=== PATIENT | female | born 1985 | race Caucasian/White ===

== ENCOUNTER 2019-06-19 13:02 | Day surgery (SDC) | payer OTHER ==
[~2019-06-19] VITALS: Ht 165.1 cm; Wt 74.9 kg
[~2019-06-19 13:02] MED LIST: CEFAZOLIN 1,000 MG ONE; DEXAMETHASONE 4 MG/ML, 1ML ONE; FENTANYL PF 250 MCG/5ML ONE; GLYCOPYRROLATE 0.2MG/1ML, 5ML ONE; MIDAZOLAM 1 MG/ML, 2ML ONE; NEOSTIGMINE 1 MG/ML, 10ML ONE; ONDANSETRON 2MG/ML, 2ML ONE; PROPOFOL 10 MG/ML, 20ML ONE; ROCURONIUM 10MG/ML,5ML ONE
[2019-06-19 13:55] VITALS: BP 107/71
[2019-06-19] MEDS ORDERED: LEVO25TA4 PO (13:55)
[2019-06-19] MEDS ORDERED: PREN1COM10 PO (13:55)
[2019-06-19] MEDS: LACTATED RINGERS 1,000 ML IV SCH ×2 (14:35→14:36)
[2019-06-19 14:37] LABS: BASOPHILS # (AUTO) 0.03 x10^3/uL (0-0.1); BASOPHILS % (AUTO) 1 % (0-1); EOSINOPHILS # (AUTO) 0.03 x10^3/uL (0-0.4); EOSINOPHILS % (AUTO) 1 % (1-7); LYMPHOCYTES # (AUTO) 1.32 x10^3/uL (1-3.4); LYMPHOCYTES % (AUTO) 28 % (22-44); MD NO; MEAN CORPUSCULAR HEMOGLOBIN 30.1 pg (27.0-34.8); MEAN CORPUSCULAR HGB CONC 33.7 g/dL (32.4-35.8); MEAN CORPUSCULAR VOLUME 89.4 fL (80-100); MEAN PLATELET VOLUME 7.5 fL (7.4-10.4); MONOCYTES # (AUTO) 0.25 x10^3/uL (0.2-0.8); MONOCYTES % (AUTO) 5 % (2-9); NEUTROPHILS # (AUTO) 3.07 x10^3/uL (1.8-6.8); NEUTROPHILS % (AUTO) 65 % (42-75); PLATELET COUNT 209 x10^3/uL (130-400); RED CELL DISTRIBUTION WIDTH 13.2 % (9.6-15.2)
[2019-06-19] MEDS ORDERED: OXYTOCIN 10 UNITS/ML, 1ML ONE (14:42)
[2019-06-19] MEDS ORDERED: METHYLERGONOVINE 0.2 MG/ML IM ONE (14:42)
[2019-06-19] MEDS ORDERED: MISOPROSTOL 200 MCG TABLET ONE (14:42)
[2019-06-19] MEDS ORDERED: SILVER NITRATE STICK TP ONE (14:43)
[2019-06-19] MEDS ORDERED: KETOROLAC 30 MG/1 ML ONE (14:59)
[2019-06-19] MEDS ORDERED: PROMETHAZINE 25 MG/ML, 1ML IV PRN (16:00)
[2019-06-19] MEDS ORDERED: FENTANYL PF 100 MCG/2ML IV PRN (16:00)
[2019-06-19] MEDS ORDERED: MEPERIDINE/PF 25MG/ML,1ML IVPush PRN (16:00)
[2019-06-19] MEDS ORDERED: OXYcodone 5 MG/5 ML ORAL.SOL UDC PO PRN (16:00)
[2019-06-19] MEDS ORDERED: HYDROmorphone 2 MG/ML, 1ML IVPush PRN (16:00)
[2019-06-19] MEDS ORDERED: HALOPERIDOL 5 MG/ML IV PRN (16:00)
[2019-06-19] MEDS ORDERED: ACETAMINOPHEN 325 MG TABLET PO PRN (16:00)
== END 2019-06-19 18:10 | disposition home or self-care (01) ==
LOC: OUT 13:02
PROVIDERS: ATTEND Obstetrics & Gynecology Gynecology
DX: O02.1 Missed abortion (principal); E03.9 Hypothyroidism, unspecified; Z79.899 Other long term (current) drug therapy; Z83.3 Family history of diabetes mellitus; Z82.49 Family history of ischemic heart disease and other diseases of the circulatory system; Z80.8 Family history of malignant neoplasm of other organs or systems
CPT/HCPCS: 36415; 59820; 85025; 88305; J0690; J1100; J1885; J2210; J2250; J2405; J2590; J2704; J2710; J3010; J7120